=== PATIENT | female | born 1985 | race Hispanic/Latino ===

== ENCOUNTER 2022-09-27 20:16 | Emergency (ER) | payer SELFPAY ==
[2022-09-27] MEDS ORDERED: FAMOTIDINE 20 MG/2 ML VIAL IV ONE (21:03)
[2022-09-27] MEDS ORDERED: MORPHINE 4 MG/ML SYR ONE (21:03)
[2022-09-27] MEDS ORDERED: NA CHLORIDE 0.9% 1,000 ML ONE (21:03)
[2022-09-27] MEDS ORDERED: ONDANSETRON 4 MG/2 ML VIAL ONE (21:03)
[2022-09-27 21:14] LABS: Urine Blood Negative (Negative); Urine Glucose Negative (Negative); Urine Protein Negative (Negative); Urine Specific Gravity 1.025 (1.005-1.030)
[2022-09-27 21:36] LABS: Urine Specific Gravity/Preg 1.025 (1.005-1.030)
[2022-09-27 21:50] LABS: Absolute Lymphocytes (CBC) 2.4 K/uL (0.7-4.9); Hematocrit 36.1 % (36.0-45.0); Lymphocytes % 32.7 % (15.3-44.8); MCV 80.8 fL (80-100); MPV 7.7 fL (7.6-11.3); RBC Red Blood Cell Count 4.46 M/uL (3.86-4.86)
--- NOTE | 2022-09-27 22:35 | RAD REPORT ---
EXAM DESCRIPTION: US - Abdomen Exam Limited - 09/27/2022 10:23 pm CLINICAL HISTORY: ABD PAIN COMPARISON: Stone Protocol dated 01/16/2018 FINDINGS: Gallbladder is absent. No abnormality in the gallbladder fossa. No common duct stone or biliary tree dilatation identified.
--- NOTE | 2022-09-27 22:39 | RAD REPORT ---
EXAM DESCRIPTION: CT - Abdomen Pelvis W Contrast - 09/27/2022 10:04 pm CLINICAL HISTORY: Abdominal pain, post-op COMPARISON: Stone Protocol dated 01/16/2018 TECHNIQUE: Biphasic, helical CT imaging of the abdomen and pelvis was performed following 100 ml non -ionic IV contrast. No oral contrast administered. All CT scans are performed using dose optimization technique as appropriate and may include automated exposure control or mA/KV adjustment according to patient size. FINDINGS: No suspicious findings in the lung bases. The liver, spleen, and pancreas show no suspicious findings. Gallbladder is absent. No abnormal degre e of biliary tree dilatation. Duct stones can be occult. 4 x 3 centimeter cystic area between the cau date lobe and head of the pancreas has not changed since 2018. Symmetric renal function is seen with no hydronephrosis or suspicious renal mass. No pyelonephritis o r acute parenchymal process. No bladder abnormalities. No adrenal abnormalities. A 2 centimeter exoph ytic uterine fibroid is present. No left ovarian abnormality seen. An involuting 2 centimeter right o varian cyst is present. Physiologic quantity of free fluid is seen in the cul-de-sac and bilateral ad nexa. No dilated bowel loops or bowel wall thickening. No appendicitis. No free air or pneumatosis. No abno rmal free fluid or inflammatory stranding. No hernia, mass or bulky lymphadenopathy. No suspicious bony findings. IMPRESSION: Contrast enhanced CT abdomen and pelvis showing no acute or emergent finding. Involuting right ovarian cyst is present. Physiologic quantity of free fluid in the pelvis.
[2022-09-27 22:53] LABS: Albumin 3.8 g/dL (3.4-5.0); Bilirubin Total 0.2 mg/dL (0.2-1.0); Potassium 3.7 mmol/L (3.5-5.1); Protein, Total 7.4 g/dL (6.4-8.2)
--- NOTE | 2022-09-27 23:12 | ER ---
Nurse's Notes [facility] Name: Winifred Escobedo Age: 36 yrs Sex: Female : 1985 Arrival Date: 09/27/2022 Time: 20:20 Bed 13 Private MD: Diagnosis: Epigastric abdominal tenderness;Abnormal findings on diagnostic imaging of other abdominal regions, including retroperitoneum-4X3 CM CYSTIC AREA BETWEEN THE CAUDATE LOBE AND THE HEAD OF THE PANCREAS Presentation: 09/27 20:38 Chief complaint: Patient states: Pt reports RUQ and periumbilical abdominal pain x1 ll3 month, worse over the last couple of days. +constipation, denies N/V. Coronavirus screen: Vaccine status: Patient reports being unvaccinated. Client denies travel out of the [place] in the last 14 days. Ebola Screen: Patient negative for fever greater than or equal to 101.5 degrees Fahrenheit, and additional compatible Ebola Virus Disease symptoms Patient denies exposure to infectious person. Patient denies travel to an Ebola-affected area in the 21 days before illness onset. Initial Sepsis Screen: Does the patient meet any 2 criteria? No. Patient's initial sepsis screen is negative. Does the patient have a suspected source of infection? No. Patient's initial sepsis screen is negative. Risk Assessment: Do you want to hurt yourself or someone else? Patient reports no desire to harm self or others. Onset of symptoms is unknown. 20:38 Method Of Arrival: Ambulatory ll3 20:38 Acuity: KLAUS 3 ll3 Triage Assessment: 20:40 General: Appears in no apparent distress. uncomfortable, Behavior is calm, cooperative, ll3 crying. Pain:. 20:42 Pain: Complains of pain in epigastric area, umbilical area and right upper quadrant kb3 Pain does not radiate. Pain currently is 10 out of 10 on a pain scale. Quality of pain is described as pressure, sharp. GI: Abdomen is round Reports lower abdominal pain, upper abdominal pain, constipation, epigastric pain. 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 Last tetanus immunization: unknown. - Social history:: Smoking status: Patient denies any tobacco usage or history of. - Family history:: not pertinent. Screenin:05 Abuse screen: Denies threats or abuse. Denies injuries from another. Nutritional lg3 screening: No deficits noted. Tuberculosis screening: No symptoms or risk factors identified. Fall Risk None identified. Assessment: 21:05 General: Appears in no apparent distress. uncomfortable, Behavior is calm, cooperative. lg3 Pain: Complains of pain in right upper quadrant and umbilical area and epigastric area Quality of pain is described as aching, crampy, squeezing, Noted to be grimacing, guarding, resistant to movement. Neuro: No deficits noted. Udnn Agitation-Sedation Scale (RASS): 0 - Alert and Calm Level of Consciousness is awake, alert, obeys commands, Oriented to person, place, time, situation. Cardiovascular: No deficits noted. Denies chest pain, shortness of breath, Capillary refill < 3 seconds Clubbing of nail beds is absent JVD is absent Patient's skin is warm and dry. Respiratory: No deficits noted. Airway is patent Trachea midline Respiratory effort is even, unlabored, Respiratory pattern is regular, symmetrical, Breath sounds are clear bilaterally. GI: Abdomen is round non-distended, Bowel sounds present X 4 quads. Abd is soft X 4 quads Abdomen is tender to palpation in umbilical area, right upper quadrant and left upper quadrant Reports upper abdominal pain, bloating, constipation, cramping, epigastric pain, nausea. : No deficits noted. No signs and/or symptoms were reported regarding the genitourinary system. EENT: No deficits noted. No signs and/or symptoms were reported regarding the EENT system. Derm: No deficits noted. No signs and/or symptoms reported regarding the dermatologic system. Skin is intact, is healthy with good turgor, Skin is dry, Skin is normal, Skin temperature is warm. Musculoskeletal: No deficits noted. No signs and/or symptoms reported regarding the musculoskeletal system. Circulation, motion, and sensation intact. Range of motion: intact in all extremities. 23:09 Reassessment: Patient appears in no apparent distress at this time. No changes from lg3 previously documented assessment. Patient and/or family updated on plan of care and expected duration. Pain level reassessed. Patient is alert, oriented x 3, equal unlabored respirations, skin warm/dry/pink. Vital Signs: 20:38 BP 127 / 70; Pulse 75; Resp 20; Temp 98; Pulse Ox 100% ; Weight 68.95 kg; Height 5 ft. ll3 1 in. (154.94 cm); Pain 10/10; 23:09 BP 122 / 76; Pulse 73; Resp 17; Pulse Ox 100% on R/A; lg3 20:38 Body Mass Index 28.72 (68.95 kg, 154.94 cm) ll3 ED Course: 20:20 Patient arrived in ED. ja2 20:32 Yasir Moreno MD is Attending Physician. michael 20:40 Triage completed. ll3 20:42 Arm band placed on right wrist. kb3 20:56 Zohra Mcintyre, RN is Primary Nurse. lg3 21:05 Patient has correct armband on for positive identification. Placed in gown. Bed in low lg3 position. Call light in reach. Side rails up X 1. Client placed on continuous cardiac and pulse oximetry monitoring. NIBP monitoring applied. Door closed. Noise minimized. Warm blanket given. 21:46 Initial lab(s) drawn, by me, sent to lab. Inserted saline lock: 22 gauge in right ll3 antecubital area, using aseptic technique. Blood collected. 22:06 CT Abd/Pelvis - IV Contrast Only In Process Unspecified. EDMS 22:25 Abdomen Limited US In Process Unspecified. EDMS 23:08 Farideh Kirk MD is Referral Physician. michael 23:12 Royce Gonzalez MD is Referral Physician. michael 23:39 No provider procedures requiring assistance completed. IV discontinued, intact, lg3 bleeding controlled, No redness/swelling at site. Pressure dressing applied. Administered Medications: 21:45 Drug: NS 0.9% 1000 ml Route: IV; Rate: 1 bolus; Site: right antecubital; ll3 22:34 Follow up: Response: No adverse reaction; IV Status: Completed infusion; IV Intake: lg3 1000ml 21:45 Drug: Pepcid (famotidine) 20 mg Route: IVP; Site: right antecubital; ll3 22:34 Follow up: Response: (VIS) Vaccine information sheet provided today. Questions and/or lg3 concerns addressed. VIS edition date: Jul 03, 2021.; Marked relief of symptoms 21:45 Drug: morphine 4 mg Route: IVP; Infused Over: 4 mins; Site: right antecubital; ll3 22:34 Follow up: Response: No adverse reaction; Marked relief of symptoms lg3 21:46 Drug: Zofran (Ondansetron) 4 mg Route: IVP; Site: right antecubital; ll3 22:34 Follow up: Response: No adverse reaction; Marked relief of symptoms lg3 Medication: 23:40 VIS not applicable for this client. lg3 Intake: 22:34 IV: 1000ml; Total: 1000ml. lg3 Outcome: 23:12 Discharge ordered by . michael 23:40 Discharged to home ambulatory. lg3 23:40 Condition: stable 23:40 Discharge instructions given to patient, Instructed on discharge instructions, follow up and referral plans. medication usage, Demonstrated understanding of instructions, follow-up care, medications, Prescriptions given X 3. 23:52 Patient left the ED. lg3 Signatures: Dispatcher [employer] EDYasir Lara MD MD cha Gibson, Lacie, RN RN lg3 Anupama Alvarez Lynsea, RN RN ll3 Leslie Baldwin, RN RN kb3
--- NOTE | 2022-09-27 23:13 | EDPHYS ---
Physician Documentation [facility] Name: Winifred Escobedo Age: 36 yrs Sex: Female : 1985 Arrival Date: 09/27/2022 Time: 20:20 Bed 13 Private MD: [place] Physician Yasir Moreno HPI: 09/27 21:21 This 36 yrs old Female presents to ER via Ambulatory with complaints of michael Abdominal Pain. 21:21 The patient presents with abdominal pain in the epigastric area, in the upper abdomen. michael Onset: The symptoms/episode began/occurred 4 week(s) ago. The symptoms do not radiate. Associated signs and symptoms: none. The symptoms are described as constant, crampy. Modifying factors: The symptoms are alleviated by nothing, the symptoms are aggravated by food. Severity of pain: At its worst the pain was mild moderate in the emergency department the pain is unchanged. The patient has experienced similar episodes in the past, multiple times. 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 Last tetanus immunization: unknown. - Social history:: Smoking status: Patient denies any tobacco usage or history of. - Family history:: not pertinent. ROS: 21:21 Constitutional: Negative for fever, chills, and weight loss, Eyes: Negative for injury, michael pain, redness, and discharge, ENT: Negative for injury, pain, and discharge, Neck: Negative for injury, pain, and swelling, Cardiovascular: Negative for chest pain, palpitations, and edema, Respiratory: Negative for shortness of breath, cough, wheezing, and pleuritic chest pain, Back: Negative for injury and pain, MS/Extremity: Negative for injury and deformity, Skin: Negative for injury, rash, and discoloration, Neuro: Negative for headache, weakness, numbness, tingling, and seizure. 21:21 Abdomen/GI: Positive for abdominal pain, of the epigastric area, right upper quadrant and left upper quadrant. Exam: 21:21 Constitutional: This is a well developed, well nourished patient who is awake, alert, michael and in no acute distress. Head/Face: Normocephalic, atraumatic. Eyes: Pupils equal round and reactive to light, extra-ocular motions intact. Lids and lashes normal. Conjunctiva and sclera are non-icteric and not injected. Cornea within normal limits. Periorbital areas with no swelling, redness, or edema. ENT: Nares patent. No nasal discharge, no septal abnormalities noted. Tympanic membranes are normal and external auditory canals are clear. Oropharynx with no redness, swelling, or masses, exudates, or evidence of obstruction, uvula midline. Mucous membranes moist. Neck: Trachea midline, no thyromegaly or masses palpated, and no cervical lymphadenopathy. Supple, full range of motion without nuchal rigidity, or vertebral point tenderness. No Meningismus. Chest/axilla: Normal chest wall appearance and motion. Nontender with no deformity. No lesions are appreciated. Cardiovascular: Regular rate and rhythm with a normal S1 and S2. No gallops, murmurs, or rubs. Normal PMI, no JVD. No pulse deficits. Respiratory: Lungs have equal breath sounds bilaterally, clear to auscultation and percussion. No rales, rhonchi or wheezes noted. No increased work of breathing, no retractions or nasal flaring. Back: No spinal tenderness. No costovertebral tenderness. Full range of motion. Pelvic Exam: Normal external genitalia. Speculum exam with closed cervical os, no discharge or bleeding noted. Bimanual exam with normal adnexa, no adnexal or cervical motion tenderness. Normal uterus. Skin: Warm, dry with normal turgor. Normal color with no rashes, no lesions, and no evidence of cellulitis. MS/ Extremity: Pulses equal, no cyanosis. Neurovascular intact. Full, normal range of motion. Neuro: Awake and alert, GCS 15, oriented to person, place, time, and situation. Cranial nerves II-XII grossly intact. Motor strength 5/5 in all extremities. Sensory grossly intact. Cerebellar exam normal. Normal gait. Psych: Awake, alert, with orientation to person, place and time. Behavior, mood, and affect are within normal limits. 21:21 Abdomen/GI: Inspection: abdomen appears normal, Bowel sounds: normal, Palpation: moderate abdominal tenderness, in the right upper quadrant and left upper quadrant, Liver: no appreciated palpable abnormalities, Hernia: not appreciated. Vital Signs: 20:38 BP 127 / 70; Pulse 75; Resp 20; Temp 98; Pulse Ox 100% ; Weight 68.95 kg; Height 5 ft. ll3 1 in. (154.94 cm); Pain 10/10; 23:09 BP 122 / 76; Pulse 73; Resp 17; Pulse Ox 100% on R/A; lg3 20:38 Body Mass Index 28.72 (68.95 kg, 154.94 cm) ll3 MDM: 20:32 Patient medically screened. michael 21:24 Differential diagnosis: Cholelithiasis, diverticulitis, Hepatitis, non-specific abd michael pain, pancreatitis, Peptic Ulcer Disease, Peritonitis, urinary tract infection. Data reviewed: vital signs, nurses notes, EKG, radiologic studies, CT scan, ultrasound. 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 Counseling: I had a detailed discussion with the patient and/or guardian regarding: the historical points, exam findings, and any diagnostic results supporting the discharge/admit diagnosis, lab results, radiology results. 09/27 20:45 Order name: CBC with Diff; Complete Time: 21:58 [facility] 09/27 20:45 Order name: CMP; Complete Time: 23:05 [facility] 09/27 20:45 Order name: Lipase; Complete Time: 23:05 [facility] 09/27 21:14 Order name: Urine Dipstick-Ancillary; Complete Time: 21:21 [facility] 09/27 21:18 Order name: Urine --Ancillary (enter results); Complete Time: 21:43 [facility] 09/27 22:29 Order name: CREATININE WHOLE BLOOD; Complete Time: 22:37 [facility] 09/27 20:45 Order name: Abdomen Limited US; Complete Time: 23:05 [facility] 09/27 20:45 Order name: CT Abd/Pelvis - IV Contrast Only; Complete Time: 23:05 [facility] 09/27 20:45 Order name: IV Saline Lock; Complete Time: 21:46 [facility] 09/27 20:45 Order name: Labs collected and sent; Complete Time: 21:46 [facility] 09/27 20:45 Order name: Urine Dipstick-Ancillary (obtain specimen); Complete Time: 21:17 michael 09/27 20:45 Order name: Urine Test (obtain specimen); Complete Time: 21:17 [facility] Administered Medications: 21:45 Drug: NS 0.9% 1000 ml Route: IV; Rate: 1 bolus; Site: right antecubital; ll3 22:34 Follow up: Response: No adverse reaction; IV Status: Completed infusion; IV Intake: lg3 1000ml 21:45 Drug: Pepcid (famotidine) 20 mg Route: IVP; Site: right antecubital; ll3 22:34 Follow up: Response: (VIS) Vaccine information sheet provided today. Questions and/or lg3 concerns addressed. VIS edition date: Jul 03, 2021.; Marked relief of symptoms 21:45 Drug: morphine 4 mg Route: IVP; Infused Over: 4 mins; Site: right antecubital; ll3 22:34 Follow up: Response: No adverse reaction; Marked relief of symptoms lg3 21:46 Drug: Zofran (Ondansetron) 4 mg Route: IVP; Site: right antecubital; ll3 22:34 Follow up: Response: No adverse reaction; Marked relief of symptoms lg3 Disposition Summary: 09/27/22 23:12 Discharge Ordered Location: Home michael Problem: new michael Symptoms: have improved michael Condition: Stable michael Diagnosis - Epigastric abdominal tenderness michael - Abnormal findings on diagnostic imaging of other abdominal regions, including michael retroperitoneum - 4X3 CM CYSTIC AREA BETWEEN THE CAUDATE LOBE AND THE HEAD OF THE PANCREAS Followup: michael - With: Private Physician - When: 2 - 3 days - Reason: Recheck today's complaints, Continuance of care, Re-evaluation by your physician Followup: michael - With: Farideh Kirk MD - When: 2 - 3 days - Reason: Recheck today's complaints, Re-evaluation by your physician Followup: michael - With: Royce Gonzalez MD - When: 2 - 3 days - Reason: Recheck today's complaints, Re-evaluation by your physician Discharge Instructions: - Discharge Summary Sheet michael - Abdominal Pain, Adult michael - Abdominal Pain, Adult, [id number] michael Forms: - Medication Reconciliation Form michael - Thank You Letter michael - Antibiotic Education michael - Prescription Opioid Use michael Prescriptions: - Pepcid 20 mg Oral Tablet - take 1 tablet by ORAL route every 12 hours for 10 days; 20 tablet; Refills: 0, [facility] Product Selection Permitted - Zofran 4 mg Oral Tablet - take 1 tablet by ORAL route every 12 hours As needed; 20 tablet; Refills: 0, [facility] Product Selection Permitted - dicyclomine 20 mg Oral Tablet - take 1 tablet by ORAL route 4 times per day; 28 tablet; Refills: 0, Product [facility] Selection Permitted Signatures: Dispatcher [employer] Yasir Solitario, Joni Swan MD, cha, RN RN ll3 Zohra Mcintyre RN lg3
[2022-09-28 01:18] VITALS: TEMP 98; O2SAT 100
[2022-09-28 01:20] VITALS: BP 122/76
== END 2022-09-27 23:52 | disposition home or self-care (01) ==
LOC: ER 20:16
DX: R10.816 Epigastric abdominal tenderness (principal); R93.5 Abnormal findings on diagnostic imaging of other abdominal regions, including retroperitoneum
CPT/HCPCS: 36415; 74177; 76705; 80053; 81003; 81025; 82565; 83690; 85025; 96361; 96374; 96375; 99284; J2405; J7030; Q9967